=== PATIENT | female | born 1970 | race Asian ===

== ENCOUNTER 2020-09-27 09:00 | Outpatient (CLI) | payer OTHER ==
[2020-09-27] MEDS ORDERED: GADOBENATE DIMEGLUMINE 529 MG/ML, 15 ML VIAL IV ONE (09:57)
== END 2020-09-27 14:00 | disposition home or self-care (01) ==
LOC: SMI 09:00
DX: R52 Pain, unspecified (principal); R60.9 Edema, unspecified; M46.02 Spinal enthesopathy, cervical region; M50.21 Other cervical disc displacement, high cervical region
CPT/HCPCS: 70543; A9577